=== PATIENT | male | born 1965 | race Caucasian/White ===

== ENCOUNTER 2017-05-08 09:01 | Inpatient (IN) | payer OTHER ==
[~2017-05-08] VITALS: Ht 170.2 cm; Wt 85.2 kg
[2017-05-08] VITALS (24 sets, daily range): BP systolic 96–122; BP diastolic 51–76; PULSE 69–101; RESP 10–18; TEMP 98.9; Ht 170.2 cm; Wt 85.2 kg
[2017-05-08] MEDS ORDERED: PANTOPRAZOLE 40 MG INJ IV STA (09:03)
[2017-05-08] MEDS ORDERED: SOD CHLORIDE 0.9% 1,000 ML IV STA (09:03)
--- NOTE | 2017-05-08 09:09 | ERA ---
ER Documentation Chief Complaint Date/Time DATE: 05/08/17 TIME: 09:09 Chief Complaint HPI 52-year-old male with a history of OK status post stent placement in October 2016 on Plavix and aspirin, presenting with dizziness, generalized weakness, and dark black stools. He was recently admitted to another hospital 1 week ago for similar symptoms. An endoscopy was done there and he was diagnosed with an ulcer per the patient. He did need a blood transfusion there. He was placed on Protonix. He was discharged with antibiotics. His last hemoglobin there was 9.7. This morning he woke up and felt very weak. He went to the bathroom and had a large amount of black stool. He denies any hematemesis, nausea, vomiting, abdominal pain, chest pain. No bright red blood per rectum. No fevers or chills. He denies drinking alcohol or NSAID use. ROS All systems reviewed and are negative except as per history of present illness. Medications Home Meds Reported Medications Aspirin* (Aspirin* EC) 81 Mg Tablet.dr, 81 MG PO DAILY, TAB 05/08/17 Metoprolol Succinate* (Toprol XL*) 25 Mg Tab.sr.24h, 25 MG PO DAILY, #30 TAB 05/08/17 Atorvastatin* (Atorvastatin*) 80 Mg Tablet, 80 MG PO QHS, #30 TAB 05/08/17 Clopidogrel Bisulfate (Clopidogrel) 75 Mg Tablet, 75 MG PO DAILY, #30 TAB 05/08/17 Acetaminophen* (Tylenol*) 500 Mg Tab, 500 MG PO Q4H Y for MILD PAIN LEVEL 1-3, TAB 05/08/17 [place]-3 Acid Ethyl Esters (Lovaza) 1 Gm Capsule, 2 GM PO BID, CAP 05/08/17 Allergies Allergies: Coded Allergies: No Known Allergy (Unverified , 05/08/17) PMhx/Soc History of Surgery: No Hx Cardiac Disorders: Yes (CAD, stents 1, OK) Hx Miscellaneous Medical Probl: Yes (GI bleed, GI ulcer,) Hx Alcohol Use: Yes Hx Substance Use: No FmHx Family History: No diabetes Physical Exam Vitals Vital Signs Date Time Temp Pulse Resp B/P Pulse Ox O2 Delivery O2 Flow Rate FiO2 05/08/17 10:29 84 18 107/57 100 Room Air 05/08/17 09:28 Venti Mask 05/08/17 09:13 98.1 82 18 80/63 100 Physical Exam Const: Ill-appearing, pale, no significant distress Head: Atraumatic Eyes: Pale conjunctiva ENT: Dry mucous membranes, pale lips Neck: Full range of motion. No JVD. No meningismus. Resp: Clear to auscultation bilaterally Cardio: Regular rate and rhythm, no murmurs Abd: Soft, non tender, non distended. No peritoneal signs. Normal bowel sounds Skin: No petechiae or rashes Back: No midline or flank tenderness Ext: No cyanosis, or edema. 2+ DP and PT pulses. 2+ radial pulses. Neur: Awake and alert and oriented 3, cranial nerves intact, speech normal, strength grossly intact in all 4 extremities Psych: Normal Mood and Affect Result Diagram: 05/08/1792905/08/1730 Results 24 hrs Laboratory Tests Test 05/08/17 09:30 White Blood Count 7.610^3/ul Red Blood Count 1.8510^6/ul Hemoglobin 6.2g/dl Hematocrit 18.0% Mean Corpuscular Volume 97.3fl Mean Corpuscular Hemoglobin 33.5pg Mean Corpuscular Hemoglobin Concent 34.4g/dl Red Cell Distribution Width 13.4% Platelet Count 41333^3/UL Mean Platelet Volume 8.9fl Neutrophils % 54.6% Lymphocytes % 34.5% Monocytes % 7.1% Eosinophils % 2.4% Basophils % 0.1% Nucleated Red Blood Cells % 0.5/100WBC Neutrophils # (Manual) 410^3/ul Lymphocytes # 2.610^3/ul Monocytes # 0.510^3/ul Eosinophils # 0.210^3/ul Basophils # 0.010^3/ul Nucleated Red Blood Cells # 0.010^3/ul Prothrombin Time 13.1Sec Prothrombin Time Ratio 1.0 INR International Normalized Ratio 0.99 Activated Partial Thromboplast Time 21.0Sec Sodium Level 139mmol/L Potassium Level 3.9mmol/L Chloride Level 105mmol/L Carbon Dioxide Level 27mmol/L Anion Gap 11 Blood Urea Nitrogen 34mg/dl Creatinine 0.87mg/dl Glucose Level 107mg/dl Calcium Level 8.2mg/dl Total Bilirubin 0.1mg/dl Direct Bilirubin 0.00mg/dl Indirect Bilirubin 0.1mg/dl Aspartate Amino Transf (AST/SGOT) 21IU/L Alanine Aminotransferase (ALT/SGPT) 35IU/L Alkaline Phosphatase 51IU/L Troponin I < 0.012ng/ml Total Protein 5.7g/dl Albumin 3.6g/dl Globulin 2.10g/dl Albumin/Globulin Ratio 1.71 Current Medications Medications (Trade) Dose Ordered Sig/Nakul Route PRN Reason Start Time Stop Time Status Last Admin Dose Admin Sodium Chloride (NS) 1,000 ml @ 1,000 mls/hr Q1H STAT IV 05/08/17 09:03 05/08/17 10:02 DC 05/08/17 09:16 Pantoprazole (Protonix Iv) 40 mg ONCE STAT IV 05/08/17 09:03 05/08/17 09:05 DC 05/08/17 09:16 Procedures/MDM EMERGENT LABS AND DIAGNOSTIC STUDIES: Lab Results above were reviewed and interpreted by me. CBC: Anemia with hemoglobin of 6.2 CMP: Elevated BUN. No evidence of electrolyte abnormality, renal failure, hypoglycemia, liver failure, or biliary obstruction Troponin within normal limits 12-lead EKG was interpreted by Ze Trinh MD: Normal Sinus Rhythm rightward axis Normal intervals No acute ST or T wave changes suggestive of acute ischemia or STEMI. Radiology Results as interpreted by Radiology below were reviewed by SJose Trinh MD: Chest x-ray unremarkable Initial Nursing notes reviewed. Previous Medical Records requested via the Electronic Health Record. EMERGENCY DEPARTMENT COURSE / MEDICAL DECISION MAKING: Patient is presenting with likely upper GI bleed. Initially his vitals are notable for hypotension with a systolic blood pressure in the 80s. 1 L of IV fluids was given with significant improvement of his dizziness and his blood pressure. 2 large-bore IVs were placed. He was placed on monitors. EKG does not show acute ischemia. Hemoglobin is low, so 1 unit of PRBCs were ordered here. He does not have any active rectal bleeding at this time. I have a low suspicion for ACS or aortic dissection. Protonix 40 mg IV given. Patient's vitals have stabilized. Patient will need admission for further workup and management. Critical Care Time: 35 minutes Treatments/Evaluations: Close monitoring and treatment of unstable vital signs, cardiorespiratory, and neurologic status, while maintaining tight balance of fluid, respiratory, and cardiac interventions. This time includes discussing the case with the patient and the patients family. This time does not include all procedures stated elsewhere in this record. This time also includes reviewing old records, labs and radiological studies. This time includes examining and re-examining the patient. Additionally, this time also includes arranging care with admitting and consulting physicians. Accepting Care Team: Current data and ongoing care discussed. Time: Time of admission Primary Provider: Dr. Ayo Shay Consulting: None Outstanding Data: none Departure Diagnosis: Primary Impression: GI bleed Qualified Code: K92.2 - Gastrointestinal hemorrhage, unspecified gastrointestinal hemorrhage type Additional Impression: Severe anemia Condition: Critical SYLVAIN TRINH MD May 08, 2017 09:09
[2017-05-08 09:44] LABS: ABNORMAL IP MESSAGE 1; BASOPHILS % 0.1 % (0.0-2.0); EOSINOPHILS # 0.2 10^3/ul (0.0-0.5); EOSINOPHILS % 2.4 % (0.0-7.0); LYMPHOCYTES # 2.6 10^3/ul (0.8-2.9); LYMPHOCYTES % 34.5 % (15.0-51.0); MEAN CORPUSCULAR HEMOGLOBIN 33.5 pg (29.0-33.0); MEAN CORPUSCULAR HGB CONC 34.4 g/dl (32.0-37.0); MEAN CORPUSCULAR VOLUME 97.3 fl (82.0-101.0); MEAN PLATELET VOLUME 8.9 fl (7.4-10.4); MONOCYTE # 0.5 10^3/ul (0.3-0.9); MONOCYTES % 7.1 % (0.0-11.0); NEUTROPHILS % 54.6 % (39.0-77.0); NUCLEATED RED BLOOD CELLS% 0.5 /100WBC (0.0-0.0); PLATELET COUNT 227 10^3/UL (140-415); POSITIVE DIFF @See below; RED BLOOD COUNT 1.85 10^6/ul (4.70-6.10); RED CELL DISTRIBUTION WIDTH 13.4 % (11.5-14.5); WHITE BLOOD COUNT 7.6 10^3/ul (4.8-10.8)
[2017-05-08 09:47] LABS: HEMOGLOBIN 6.2 g/dl (14.0-18.0)
--- NOTE | 2017-05-08 09:52 | RADRPT ---
PROCEDURE: XR Chest. CLINICAL INDICATION: Possible Upper GI Bleed TECHNIQUE: Frontal chest x-ray was obtained. COMPARISON: None. FINDINGS: Heart is not enlarged. Mediastinum is not widened. No hilar masses seen. Lungs are clear of any i nfiltrates. There is no effusion or pneumothorax. IMPRESSION: No evidence for active cardiopulmonary disease. .Shashi Bales MD, MD Date Time Electronically viewed and signed by .Shashi Bales MD, on 05/08/2017 09:52 .A/
[2017-05-08 10:01] LABS: ALANINE AMINOTRANSFERASE 35 IU/L (13-69); ALBUMIN 3.6 g/dl (3.3-4.9); ALBUMIN/GLOBULIN RATIO 1.71; ALKALINE PHOSPHATASE 51 IU/L (42-121); ANION GAP 11 (8-16); ASPARTATE AMINO TRANSFERASE 21 IU/L (15-46); BILIRUBIN,INDIRECT 0.1 mg/dl (0-1.1); BILIRUBIN,TOTAL 0.1 mg/dl (0.2-1.3); BLOOD UREA NITROGEN 34 mg/dl (7-20); CALCIUM 8.2 mg/dl (8.4-10.2); CARBON DIOXIDE 27 mmol/L (21-31); CHLORIDE 105 mmol/L (97-110); CREATININE 0.87 mg/dl (0.61-1.24); GLUCOSE 107 mg/dl (70-220); POTASSIUM 3.9 mmol/L (3.5-5.1); SODIUM 139 mmol/L (135-144); TOTAL PROTEIN 5.7 g/dl (6.1-8.1)
[2017-05-08 10:08] LABS: INR 0.99; PROTIME 13.1 Sec (12.2-14.2)
[2017-05-08 10:13] LABS: TROPONIN-I < 0.012 ng/ml (0.00-0.12)
[2017-05-08] MEDS ORDERED: OMEG1CAP2 PO (11:21)
[2017-05-08] MEDS ORDERED: TYL500 PO (11:22)
[2017-05-08] MEDS ORDERED: CLOP75TA27 PO (11:33)
[2017-05-08] MEDS ORDERED: METO25TA7 PO (11:33)
[2017-05-08] MEDS ORDERED: ATOR80TA75 PO (11:33)
[2017-05-08] MEDS ORDERED: ASPI-664 PO (11:34)
--- NOTE | 2017-05-08 12:26 | CONS ---
Date/Time of Note Date/Time of Note DATE: 05/08/17 TIME: 12:26 Assessment/Plan Assessment/Plan Additional Assessment/Plan Assessment: * GI bleeding/melena/recurrent * Similar episode 1 week prior at all review. EGD ulcer disease discharge on Protonix and antibiotics * Anemia * CAD/Post PTCA-Stent 10/2016 * On Plavix and aspirin Plan: * Protonix drip * Transfuse to hemoglobin above 7.5 * EGD tomorrow or sooner if evidence of active bleeding * Cardiology evaluation to assess need for further antiplatelet therapy . Consultation Date/Type/Reason Admit Date/Time Date of Consultation: May 08, 2017 Type of Consultation: GI Reason for Consultation GI bleeding/melena/anemia Hx of Present Illness 52-year-old male with significant history of coronary artery disease post PTCA/ stent October 2016, on Plavix and aspirin. The patient had an episode of gastrointestinal bleed in the form of melena for which he has hospitalized at [facility], no records are available but the patient reports having had an endoscopy and have not been told to get a bleeding ulcer that was treated. He was discharged on Protonix and antibiotics presumably for H. pylori infection. The patient did well for 2 or 3 days his stool returned normal however by Wednesday 3 days ago he noticed again melena and feeling nauseous. He subsequently developed increasing nausea and weakness as well as diaphoresis and presented to the emergency room. Upon evaluation in the emergency room he has hemoglobin 6.7. The patient has had no hematemesis or burgundy stool. He denies use of ulcerogenic drugs or alcohol. He denies previous history of liver disease or gastrointestinal illness. He will be admitted, transfused and electively endoscope tomorrow unless situation dictates otherwise. The patient was informed of the procedure including risks, benefits and alternatives. He is agreeable to proceed Constitutional: improved, no complaints Eyes: no complaints ENT: no complaints Respiratory: no complaints Cardiovascular: no complaints Gastrointestinal: other (See HPI) Genitourinary: no complaints Musculoskeletal: no complaints Skin: no complaints Neurologic: no complaints Endocrine: no complaints Lymphatic: no complaints Psychological: nl mood/affect, no complaints Immunologic: no complaints Past Medical History Medical History: angina, coronary artery disease (Post PTCA/stent), GI bleed, peptic ulcer disease Past Surgical History Past Surgical Hx: no surgical history Family History Significant Family History: no pertinent family hx Social History Alcohol Use: occasionally Smoking Status: Never smoker Drug Use: none Exam/Review of Systems Vital Signs Vitals Vital Signs Date Time Temp Pulse Resp B/P Pulse Ox O2 Delivery O2 Flow Rate FiO2 05/08/17 10:29 84 18 107/57 100 Room Air 05/08/17 09:13 98.1 Exam Constitutional: alert, oriented, well developed Psych: nl mood/affect, no complaints Head: atraumatic, normocephalic Eyes: EOMI, PERRL, nl conjunctiva, nl lids, nl sclera ENMT: nl external ears & nose, nl lips & teeth, nl nasal mucosa & septum Neck: non-tender, supple Respiratory: clear to auscultation, normal air movement Cardiovascular: nl pulses, regular rate and rhythm Gastrointestinal: bowel sounds, nl liver, spleen, other (Melena), soft, tender (Mild epigastric tenderness), No ascites, No distended, No firm, No mass, No rebound or guarding Musculoskeletal: nl extremities to inspection Extremities: normal pulses Neurological: GENERAL SCIENCE TEACHER II-XII intact, nl mental status, nl speech, nl strength Skin: nl turgor, No rash or lesions Lymph: nl lymph nodes Results Result Diagram: 05/08/17 0930 05/08/17 0930 Results 24 hrs Laboratory Tests Test 05/08/17 09:30 White Blood Count 7.6 Red Blood Count 1.85 L Hemoglobin 6.2 *L Hematocrit 18.0 L Mean Corpuscular Volume 97.3 Mean Corpuscular Hemoglobin 33.5 H Mean Corpuscular Hemoglobin Concent 34.4 Red Cell Distribution Width 13.4 Platelet Count 227 Mean Platelet Volume 8.9 Neutrophils % 54.6 Lymphocytes % 34.5 Monocytes % 7.1 Eosinophils % 2.4 Basophils % 0.1 Nucleated Red Blood Cells % 0.5 H Neutrophils # (Manual) 4 Lymphocytes # 2.6 Monocytes # 0.5 Eosinophils # 0.2 Basophils # 0.0 Nucleated Red Blood Cells # 0.0 Prothrombin Time 13.1 Prothrombin Time Ratio 1.0 INR International Normalized Ratio 0.99 Activated Partial Thromboplast Time 21.0 L Sodium Level 139 Potassium Level 3.9 Chloride Level 105 Carbon Dioxide Level 27 Anion Gap 11 Blood Urea Nitrogen 34 H Creatinine 0.87 Glucose Level 107 Calcium Level 8.2 L Total Bilirubin 0.1 L Direct Bilirubin 0.00 Indirect Bilirubin 0.1 Aspartate Amino Transf (AST/SGOT) 21 Alanine Aminotransferase (ALT/SGPT) 35 Alkaline Phosphatase 51 Troponin I < 0.012 Total Protein 5.7 L Albumin 3.6 Globulin 2.10 Albumin/Globulin Ratio 1.71 VICKIE MARSH MD May 08, 2017 12:26
--- NOTE | 2017-05-08 13:12 | HP ---
Date/Time of Note Date/Time of Note DATE: 05/08/17 TIME: 13:08 Assessment/Plan VTE Prophylaxis VTE Prophylaxis Intervention: SCD's Assessment/Plan Chief Complaint/Hosp Course 1. Severe symptomatic anemia secondary to GI bleed-patient has history of recent GI bleed -Protonix drip -GI consult appreciated, plan for EGD tomorrow -Blood transfusion -Hold aspirin Plavix -N.p.o. and IV fluids 2. History of coronary disease status post PCI approximate 6 months ago -Cardiology consultation to discuss anticoagulation -Hold cardiac meds at this time PPx: SCDs Problems: HPI/ROS Admit Date/Time Admit Date/Time 05/08/2017 Hx of Present Illness Patient is a 52-year-old male with a history of coronary disease status post PCI in October 2016. Patient also has a recent history of GI bleed with EGD last week at [facility] with findings of a gastric ulcer. Patient presents with worsening weakness and melena as well as report of the skin looking more pale. In ED patient blood pressure was noted to be low and patient was tachycardic. Patient denies any upper GI bleed and denies any abdominal pain at this time. ROS Constitutional: improved, no complaints Eyes: no complaints ENT: no complaints Respiratory: no complaints Cardiovascular: no complaints Gastrointestinal: other (Melena) Genitourinary: no complaints Musculoskeletal: no complaints Skin: no complaints Neurologic: no complaints Endocrine: no complaints Lymphatic: no complaints Psychological: nl mood/affect, no complaints Immunologic: no complaints PMH/Family/Social Past Medical History Medical History: coronary artery disease (Post PTCA/stent), GI bleed, peptic ulcer disease Past Surgical History Past Surgical Hx: no surgical history Family History Significant Family History: no pertinent family hx Social History Alcohol Use: occasionally Smoking Status: Never smoker Drug Use: none Exam/Review of Systems Vital Signs Vitals Vital Signs Date Time Temp Pulse Resp B/P Pulse Ox O2 Delivery O2 Flow Rate FiO2 05/08/17 10:29 84 18 107/57 100 Room Air 05/08/17 09:13 98.1 Exam Constitutional: alert, oriented Head: normocephalic Respiratory: clear to auscultation Cardiovascular: regular rate and rhythm Gastrointestinal: soft, No distended Musculoskeletal: nl extremities to inspection Labs Result Diagram: 8/19/17 0930 8/19/17 0930 Medications Medications Current Medications Pantoprazole/ Sodium Chloride (Protonix Iv/NS) 100 ml @ 10 mls/hr Q10H IV ; Start 05/08/17 at 12:58 ESTEFANI KIM May 08, 2017 13:12
[2017-05-08] MEDS ORDERED: PANTOPRAZOLE 40 MG INJ IV ONE (13:30)
[2017-05-08] MEDS ORDERED: morphine 2 MG INJ IV PRN (13:30)
[2017-05-08] MEDS ORDERED: ONDANSETRON 4 MG INJ IV PRN (13:30)
[2017-05-08] MEDS: D5-NS + KCL 20 MEQ 1,000 ML IV SCH ×3 (13:30→23:30)
[2017-05-08] MEDS ORDERED: NACL 0.9% 3 ML SYG IV SCH (13:30)
[2017-05-08] MEDS: PANTOPRAZOLE IV 80 MG in SOD CHLORIDE 0.9% 100 ML IV SCH ×2 (14:00→19:43)
[2017-05-08 14:59] LABS: HEMATOCRIT 19.6 % (42.0-52.0)
[2017-05-08 15:08] LABS: HEMOGLOBIN 6.4 g/dl (14.0-18.0)
[2017-05-08 18:52] LABS: HEMATOCRIT 21.8 % (42.0-52.0); HEMOGLOBIN 7.4 g/dl (14.0-18.0)
[2017-05-08] MEDS ORDERED: PANTOPRAZOLE IV 80 MG in SOD CHLORIDE 0.9% 100 ML IV SCH (22:00)
[2017-05-09] VITALS (35 sets, daily range): BP systolic 81–119; BP diastolic 36–70; PULSE 56–84; RESP 7–23
[2017-05-09 01:30] LABS: HEMOGLOBIN 7.7 g/dl (14.0-18.0)
[2017-05-09] MEDS: D5-NS + KCL 20 MEQ 1,000 ML IV SCH ×5 (03:00→17:07)
[2017-05-09 05:09] LABS: BASOPHILS % 0.1 % (0.0-2.0); EOSINOPHILS # 0.1 10^3/ul (0.0-0.5); HEMATOCRIT 21.2 % (42.0-52.0); HEMOGLOBIN 7.3 g/dl (14.0-18.0); LYMPHOCYTES # 2.7 10^3/ul (0.8-2.9); MEAN CORPUSCULAR HEMOGLOBIN 30.4 pg (29.0-33.0); MEAN CORPUSCULAR HGB CONC 34.4 g/dl (32.0-37.0); MEAN CORPUSCULAR VOLUME 88.3 fl (82.0-101.0); MEAN PLATELET VOLUME 8.9 fl (7.4-10.4); MONOCYTE # 0.6 10^3/ul (0.3-0.9); MONOCYTES % 8.1 % (0.0-11.0); NEUTROPHILS % 51.7 % (39.0-77.0); NUCLEATED RED BLOOD CELLS% 0.3 /100WBC (0.0-0.0); PLATELET COUNT 142 10^3/UL (140-415); RED CELL DISTRIBUTION WIDTH 15.8 % (11.5-14.5); WHITE BLOOD COUNT 7.2 10^3/ul (4.8-10.8)
[2017-05-09 05:38] LABS: CALCIUM 7.3 mg/dl (8.4-10.2); CREATININE 0.81 mg/dl (0.61-1.24); MAGNESIUM 2.1 mg/dl (1.7-2.5); POTASSIUM 3.5 mmol/L (3.5-5.1)
[2017-05-09] MEDS ORDERED: PANTOPRAZOLE IV 80 MG in SOD CHLORIDE 0.9% 100 ML IV SCH (08:00)
[2017-05-09] MEDS ORDERED: PROPOFOL 20 ML ONE (10:29)
[2017-05-09] MEDS ORDERED: FENTAnyl 50 MCG/ML VIAL ONE (10:29)
[2017-05-09] MEDS ORDERED: LIDOCAINE 100 MG SYRINGE ONE (10:29)
--- NOTE | 2017-05-09 11:40 | OPPN ---
Date/Time of Note Date/Time of Note DATE: 05/09/17 TIME: 11:30 Proc Note GI Free Text/Dictation Preoperative Diagnosis: GI bleeding/melena/anemia Postoperative Diagnosis: * 1 cm active prepyloric , clean base, no stigmata, benign endoscopic appearance * Moderate gastritis. Rule out H. pylori infection. Biopsies obtained Plan: * Continue PPI drip for 24 hours then PPI twice daily * Advance diet as tolerated * Monitor H&H transfuse as necessary * If hemoglobin drops further may need to consider colonoscopy during this hospitalization otherwise it should be considered as an outpatient as soon as possible Procedure Performed: EGD with biopsies Surgeon: Vickie Salcedo MD Vascular Surgery Physician: None Second Inner Diameter Grinder Tool: None Anesthesia/Sedation: MAC/ Tourniquet Time: NA Estimated Blood Loss: 0 Transfusion Required: No Specimens: Gastric antral Grafts/Implants: None Tubes/Drains: NA Complications: None Pt. Condition Post Procedure: Stable Disposition: ICU After informed consent, with the patient/relatives understanding the procedure, its indications, potential risks and complications, including but not limited to : allergic reaction, bleeding, perforation or infection, and after all pertinent questions were answered to the patients satisfaction, the patient/ relatives signed witnessed informed consent. Following this, premedication was administered slowly IV push under careful cardiovascular and respiratory monitoring with pulse oximetry, automatic blood pressure, and environmental monitoring technician. Once the sedative effect was achieved the patient was place in the left lateral decubitus, the panendoscope was introduced and advanced under visual control. Careful examination of the upper gastrointestinal tract, both on insertion as well as withdrawal of the instrument disclosing the following findings: Esophagus: the mucosa of the entire esophagus was carefully examined and showed the following findings: [the mucosa appears within normal limits. There is no evidence of esophagitis, varices, neoplasm, or stricture. No Hiatal Hernia identified.] Stomach: Upon entrance to the stomach air was insufflated, the gastric estrada distended normally. The mucosa of the fundus, body and antrum of the stomach was carefully examined both head-on and on retroflexion, and showed the following findings: There is a 1 cm clean base, prepyloric antral ulceration. Benign endoscopic appearance. No stigmata recent bleeding. There is also erythema and edema of the mucosa throughout the stomach. Biopsies were obtained a limited fashion of the antrum of the stomach to rule out H. pylori infection. Otherwise the mucosa appears within normal limits with no abnormalities. There is no evidence of neoplasm.] Pylorus: The pylorus was carefully examined and showed the following findings: [ the pylorus appears patent and within normal limits, with no evidence of gastric outlet obstruction.] Duodenum: The duodenal mucosa was carefully examined in the duodenal bulb as well as the second portion of the duodenum and showed the following findings: [ the mucosa appears unremarkable with no evidence of duodenitis, ulcer or neoplasm.] Procedure date: May 09, 2017 VICKIE SALCEDO MD May 09, 2017 11:40
[2017-05-09 12:33] LABS: HEMATOCRIT 25.8 % (42.0-52.0); HEMOGLOBIN 8.8 g/dl (14.0-18.0)
[2017-05-09] MEDS: PANTOPRAZOLE 40 MG INJ IV SCH (17:29)
--- NOTE | 2017-05-09 18:27 | PN ---
Date/Time of Note Date/Time of Note DATE: 05/09/17 TIME: 18:25 Assessment/Plan VTE Prophylaxis VTE Prophylaxis Intervention: SCD's Lines/Catheters IV C[facility]ter Type (from [facility] Peripheral IV Urinary Cath still in place: No Assessment/Plan Chief Complaint/Hosp Course 1. Severe symptomatic anemia secondary to GI bleed-patient has history of recent GI bleed -Status post Protonix drip, transitioned to Protonix twice daily -GI consult appreciated, EGD shows nonbleeding gastric ulcer -Status post blood transfusion -Hold aspirin Plavix -N.p.o. and IV fluids 2. History of coronary disease status post PCI approximate 6 months ago -Cardiology consultation obtained to discuss anticoagulation -Hold cardiac meds at this time PPx: SCDs Problems: Subjective 24 Hr Interval Summary Constitutional: no complaints Exam/Review of Systems Vital Signs Vitals Vital Signs Date Time Temp Pulse Resp B/P Pulse Ox O2 Delivery O2 Flow Rate FiO2 05/09/17 17:09 97.9 63 12 103/59 Room Air 05/09/17 16:00 100 Intake and Output 05/08/17 05/08/17 05/09/17 15:00 23:00 07:00 Intake Total 360 ml 560 ml 710 ml Output Total 650 ml 950 ml 0 ml Balance -290 ml -390 ml 710 ml Exam Constitutional: alert, oriented Respiratory: clear to auscultation Cardiovascular: regular rate and rhythm Gastrointestinal: soft, No distended Musculoskeletal: nl extremities to inspection Results Result Diagram: 05/09/17 1225 05/09/17 0428 Results 24 hrs Laboratory Tests Test 05/08/17 18:35 05/09/17 00:39 05/09/17 04:28 05/09/17 06:54 Hemoglobin 7.4 L 7.7 L 7.3 L Hematocrit 21.8 L 22.0 L 21.2 L White Blood Count 7.2 Red Blood Count 2.40 #L Mean Corpuscular Volume 88.3 Mean Corpuscular Hemoglobin 30.4 Mean Corpuscular Hemoglobin Concent 34.4 Red Cell Distribution Width 15.8 H Platelet Count 142 # Mean Platelet Volume 8.9 Neutrophils % 51.7 Lymphocytes % 37.0 Monocytes % 8.1 Eosinophils % 2.0 Basophils % 0.1 Nucleated Red Blood Cells % 0.3 H Neutrophils # (Manual) 4 Lymphocytes # 2.7 Monocytes # 0.6 Eosinophils # 0.1 Basophils # 0.0 Nucleated Red Blood Cells # 0.0 Sodium Level 138 Potassium Level 3.5 Chloride Level 111 H Carbon Dioxide Level 24 Anion Gap 7 L Blood Urea Nitrogen 22 #H Creatinine 0.81 Glucose Level 101 Hemoglobin A1c 5.7 Calcium Level 7.3 L Phosphorus Level 3.0 Magnesium Level 2.1 Lab Scanned Report BLOOD TRANSFUSION Test 05/09/17 12:25 Hemoglobin 8.8 #L Hematocrit 25.8 #L Medications Medications Current Medications Ondansetron HCl (Zofran Inj) 4 mg Q6H PRN IV NAUSEA AND/OR VOMITING; Start at 13:30 Morphine Sulfate 2 mg 2 mg Q4H PRN IV SEVERE PAIN LEVEL 7-10; Start 05/08/17 at 13:30 Potassium Chloride/Dextrose/ Sod Cl (D5-NS + KCl 20 Meq) 1,000 ml @ 100 mls/hr Q10H IV Last administered on 05/09/17 17:07; Admin Dose 100 MLS/HR; Start at 13:30 Pantoprazole (Protonix Iv) 40 mg BID@06,18 IV Last administered on 05/09/17 17 :29; Admin Dose 40 MG; Start 05/09/17 at 18:00 ESTEFANI KIM May 09, 2017 18:27
[2017-05-09 18:43] LABS: HEMATOCRIT 24.9 % (42.0-52.0); HEMOGLOBIN 8.7 g/dl (14.0-18.0)
[2017-05-10] MEDS: D5-NS + KCL 20 MEQ 1,000 ML IV SCH ×2 (00:55→13:39)
[2017-05-10 01:43] LABS: HEMATOCRIT 25.6 % (42.0-52.0); HEMOGLOBIN 8.9 g/dl (14.0-18.0)
[2017-05-10] MEDS: PANTOPRAZOLE 40 MG INJ IV SCH ×2 (05:23→18:55)
[2017-05-10 05:30] LABS: HEMATOCRIT 23.1 % (42.0-52.0)
[2017-05-10 06:12] LABS: CALCIUM 7.6 mg/dl (8.4-10.2); CREATININE 0.81 mg/dl (0.61-1.24); POTASSIUM 3.6 mmol/L (3.5-5.1)
--- NOTE | 2017-05-10 07:34 | CONS ---
Date/Time of Note Date/Time of Note DATE: 05/10/17 TIME: 07:32 Assessment/Plan Assessment/Plan Additional Assessment/Plan s/p GIB s/p PCI 11/06 -off asa/plavix due to active GIB -d/c plavix for 2 weeks and then resume if ok with GI -resume ASA as soon as GIB resolves and if ok with GI due to recent stent -on protonix GI involved Consultation Date/Type/Reason Admit Date/Time 05/08/2017 Hx of Present Illness Patient is a 52-year-old male with a history of coronary disease status post PCI in October 2016. Patient also has a recent history of GI bleed with EGD last week at [facility] with findings of a gastric ulcer. Patient presents with worsening weakness and melena as well as report of the skin looking more pale. In ED patient blood pressure was noted to be low and patient was tachycardic. Patient denies any upper GI bleed and denies any abdominal pain at this time. He is s/p EGD with gastric ulcer with no chest pain and no overt chf Constitutional: no complaints Eyes: no complaints ENT: no complaints Respiratory: no complaints Cardiovascular: no complaints Gastrointestinal: other (Melena) Genitourinary: no complaints Musculoskeletal: no complaints Skin: no complaints Neurologic: no complaints Endocrine: no complaints Lymphatic: no complaints Psychological: nl mood/affect, no complaints Immunologic: no complaints Past Medical History Medical History: coronary artery disease (Post PTCA/stent), GI bleed, peptic ulcer disease Past Surgical History Past Surgical Hx: no surgical history Social History Alcohol Use: occasionally Smoking Status: Never smoker Drug Use: none Exam/Review of Systems Vital Signs Vitals Vital Signs Date Time Temp Pulse Resp B/P Pulse Ox O2 Delivery O2 Flow Rate FiO2 05/09/17 21:43 98.1 72 19 105/58 95 05/09/17 17:09 Room Air Intake and Output 05/09/17 05/09/17 05/10/17 15:00 23:00 07:00 Intake Total 1345 ml 460 ml 2320 ml Output Total 1650 ml 1200 ml Balance -305 ml 460 ml 1120 ml Results Result Diagram: 05/10/17 0440 05/10/17 0440 Results 24 hrs Laboratory Tests Test 05/09/17 12:25 05/09/17 18:35 05/10/17 00:42 05/10/17 04:40 Hemoglobin 8.8 #L 8.7 L 8.9 L 8.0 L Hematocrit 25.8 #L 24.9 L 25.6 L 23.1 L Sodium Level 138 Potassium Level 3.6 Chloride Level 109 Carbon Dioxide Level 24 Anion Gap 9 Blood Urea Nitrogen 10 # Creatinine 0.81 Glucose Level 94 Calcium Level 7.6 L Test 05/10/17 06:03 Lab Scanned Report BLOOD TRANSFUSION Medications Medications Current Medications Ondansetron HCl (Zofran Inj) 4 mg Q6H PRN IV NAUSEA AND/OR VOMITING; Start at 13:30 Morphine Sulfate 2 mg 2 mg Q4H PRN IV SEVERE PAIN LEVEL 7-10; Start 05/08/17 at 13:30 Potassium Chloride/Dextrose/ Sod Cl (D5-NS + KCl 20 Meq) 1,000 ml @ 100 mls/hr Q10H IV Last administered on 05/10/17 00:55; Admin Dose 100 MLS/HR; Start at 13:30 Pantoprazole (Protonix Iv) 40 mg BID@06,18 IV Last administered on 05/10/17 05 :23; Admin Dose 40 MG; Start 05/09/17 at 18:00 STEVIE GUAN MD May 10, 2017 07:33
[2017-05-10 07:50] VITALS: BP 92/50; RESP 16
[2017-05-10 12:11] VITALS: BP 129/76; PULSE 69; RESP 20
[2017-05-10 12:27] LABS: HEMATOCRIT 25.7 % (42.0-52.0); HEMOGLOBIN 8.7 g/dl (14.0-18.0)
--- NOTE | 2017-05-10 16:28 | PDOCDIS ---
Discharge Instructions CONDITION Patient Condition: Good HOME CARE INSTRUCTIONS: Diet Instructions: RegularSpecial Diet: 2 GM NA ACTIVITY: Activity Restrictions: No Restrictions FOLLOW UP/APPOINTMENTS Follow-up Plan It is very important that you temporarily stop taking aspirin or plavix until your ulcer has healed. You can restart these medications in 2 weeks. Please return to the ED if you have further blood in your stool or other concerning symptoms Follow up with Dr Salcedo in clinic for further care JUJU ELLSWORTH MD May 10, 2017 16:28
[2017-05-10] MEDS ORDERED: OMEP40CA6 PO (16:31)
--- NOTE | 2017-05-10 16:33 | DS ---
Date/Time of Note Date/Time of Note DATE: 05/10/17 TIME: 16:31 Discharge Summary Admission/Discharge Info Admit Date/Time May 08, 2017 at 13:07 Discharge Date/Time Consults GI Procedures EGD Hx of Present Illness Patient is a 52-year-old male with a history of coronary disease status post PCI in October 2016. Patient also has a recent history of GI bleed with EGD last week at [facility] with findings of a gastric ulcer. Patient presents with worsening weakness and melena as well as report of the skin looking more pale. In ED patient blood pressure was noted to be low and patient was tachycardic. Patient denies any upper GI bleed and denies any abdominal pain at this time. Hospital Course Patient underwent EGD showing a small prepyloric peptic ulcer that was not bleeding. He was give a PPI. His H/H was stable, no more bleeding. In discussion with cardiology and gastroenterology, it was decided to hold the patient's aspirin and plavix for two weeks following discharge to allow ulcer to heal. Home Meds Active Scripts Omeprazole* (Omeprazole*) 40 Mg Capsule., 40 MG PO DAILY for 30 Days, #30 CAP Prov:JUJU ELLSWORTH MD 05/10/17 Reported Medications Aspirin* (Aspirin* EC) 81 Mg Tablet.dr, 81 MG PO DAILY, TAB 05/08/17 Metoprolol Succinate* (Toprol XL*) 25 Mg Tab.sr.24h, 25 MG PO DAILY, #30 TAB 05/08/17 Atorvastatin* (Atorvastatin*) 80 Mg Tablet, 80 MG PO QHS, #30 TAB 05/08/17 Clopidogrel Bisulfate (Clopidogrel) 75 Mg Tablet, 75 MG PO DAILY, #30 TAB 05/08/17 Acetaminophen* (Tylenol*) 500 Mg Tab, 500 MG PO Q4H Y for MILD PAIN LEVEL 1-3, TAB 05/08/17 [place]-3 Acid Ethyl Esters (Lovaza) 1 Gm Capsule, 2 GM PO BID, CAP 05/08/17 Primary Care Provider Not On Staff Doctor Time spent on discharge: > 30 minutes Pending Labs Laboratory Tests Test 05/09/17 18:35 05/10/17 00:42 05/10/17 04:40 05/10/17 06:03 Hemoglobin 8.7g/dl (14.0-18.0) 8.9g/dl (14.0-18.0) 8.0g/dl (14.0-18.0) Hematocrit 24.9% (42.0-52.0) 25.6% (42.0-52.0) 23.1% (42.0-52.0) Sodium Level 138mmol/L (135-144) Potassium Level 3.6mmol/L (3.5-5.1) Chloride Level 109mmol/L (97-110) Carbon Dioxide Level 24mmol/L (21-31) Anion Gap 9 (8-16) Blood Urea Nitrogen 10mg/dl (7-20) Creatinine 0.81mg/dl (0.61-1.24) Glucose Level 94mg/dl (70-220) Calcium Level 7.6mg/dl (8.4-10.2) Lab Scanned Report BLOOD [id number] Test 05/10/17 12:13 Hemoglobin 8.7g/dl (14.0-18.0) Hematocrit 25.7% (42.0-52.0) JUJU ELLSWORTH MD May 10, 2017 16:33
--- NOTE | 2017-05-10 17:59 | RADRPT ---
Echocardiogram Report Patient Name: EMERITA SERVIN Gender: Male Date: 1965 Study Date: 10-May-2017 [employer] Machine Operator: Shamar Ortiz [facility] Location: [id number] Ref. Physician: STEVIE GUAN Quality: Adequate Procedures: Transthoracic echocardiogram with complete 2D, M-Mode, and doppler examination. Indications: Coronary Artery Disease. 2D/M Mode Doppler Measurement Value Normal Ranges Measurement Value Normal Ranges LVIDd 2D 5.3 3.5 - 5.6 cm AV Peak Tio 1.6 m/sec LVIDs 2D 3.5 2.1 - 4.1 cm AV Peak PG 9.9 mmHg LVPWd 2D 1.0 0.6 - 1.1 cm LVOT Peak Tio 1.2 m/sec IVSd 2D 1.0 0.6 - 1.1 cm LVOT Peak PG 5.9 mmHg AoR Diam 2D 2.8 2.0 - 3.7 cm MV E Peak Tio 1.1 m/sec EDV 2D 136.1 cm3 MV A Peak Tio 0.6 m/sec ESV 2D 44.6 cm3 MV E/A 1.7 LA Dimen 2D 3.4 2.3 - 4.0 cm MV Decel Time 221 msec MV Decel Leake 5 MV E/A 1.7 TR Peak Tio 2.7 m/sec TR Peak PG 30.1 mmHg RVSP 33.0 mmHg Findings Left Ventricle: Normal left ventricular systolic function. Normal left ventricular cavity size. Normal left ventricular wall thickness. Ejection fraction is visually estimated at 65 %. Tissue Doppler/Mitral Doppler indices are within normal limits. Right Ventricle: Normal right ventricular size. Normal right ventricular systolic function. Left Atrium: The left atrium is normal in size. Right Atrium: The right atrium is normal in size. Mitral Valve: Mild mitral leaflet calcification. Mild mitral annular calcification. Trace mitral regurgitation. Aortic Valve: Normal appearance of the aortic valve. No significant aortic stenosis or insufficiency. Tricuspid Valve: Normal appearance of the tricuspid valve. Estimated peak PA systolic pressure 33 mmHg. There is mild tricuspid regurgitation. Pulmonic Valve: Pulmonic valve not well visualized. There is trace pulmonic regurgitation. Pericardium: Normal pericardium with no significant pericardial effusion. Aorta: Normal aortic root. IVC: Normal size and normal respiratory collapse consistent with normal right atrial pressure. Conclusions 1.Normal left ventricular systolic function. Normal left ventricular cavity size. Normal left ventricular wall thickness. Ejection fraction is visually estimated at 65 %. Tissue Doppler/Mitral Doppler indices are within normal limits. 2.The right atrium is normal in size. 3.Mild mitral leaflet calcification. Mild mitral annular calcification. Trace mitral regurgitation. 4.Normal appearance of the aortic valve. No significant aortic stenosis or insufficiency. 5.Normal appearance of the tricuspid valve. Estimated peak PA systolic pressure 33 mmHg. There is mild tricuspid regurgitation. 6.Normal size and normal respiratory collapse consistent with normal right atrial pressure. Electronically Signed By: Todd Sy 10-May-2017 17:58:54 -0700 Patient Name: EMERITA SERVIN Study Date: 10-May-2017 [id number]
[2017-05-10 19:16] LABS: HEMATOCRIT 26.3 % (42.0-52.0)
== END 2017-05-10 20:10 | disposition home or self-care (01) | DRG 384 ==
LOC: E/R 09:01 → ICU 13:07 → MS1 05-09 16:52
PROVIDERS: ADMIT Internal Medicine; ATTEND Internal Medicine
PROC: 30233N1 Transfusion of Nonautologous Red Blood Cells into Peripheral Vein, Percutaneous Approach (ICD-10-PCS; 2017-05-08)
PROC: 0DB68ZX Excision of Stomach, Via Natural or Artificial Opening Endoscopic, Diagnostic (ICD-10-PCS; principal; 2017-05-09 11:00)
DX: K25.9 Gastric ulcer, unspecified as acute or chronic, without hemorrhage or perforation (principal); K92.1 Melena; R00.0 Tachycardia, unspecified; K29.70 Gastritis, unspecified, without bleeding; D50.0 Iron deficiency anemia secondary to blood loss (chronic); I25.10 Atherosclerotic heart disease of native coronary artery without angina pectoris; I25.2 Old myocardial infarction; Z95.5 Presence of coronary angioplasty implant and graft; Z79.82 Long term (current) use of aspirin; Z79.02 Long term (current) use of antithrombotics/antiplatelets
CPT/HCPCS: 36415; 36430; 71010; 80048; 80053; 83036; 83735; 84100; 84484; 85014; 85018; 85025; 85610; 85730; 86850; 86900; 86901; 86920; 87081; 88305; 88312; 93005; 93306; 96374; 96375; C9113; J2001; J3010; J3480; J7030; P9016